=== PATIENT | male | born 1945 | race Caucasian/White ===

== ENCOUNTER 2017-02-10 18:08 | Emergency (ER) | payer OTHER, MEDICARE ==
[~2017-02-10 18:08] MED LIST: ARTIFICIAL TEAR15 ML OU; ASPIR 8181 MG JT; FLONASE 0.05% N16 GM; JEVITY 1 CAL1500 ML PO; LEVAQUIN750 MG PO; LIORESAL TAB 1010 MG JT; LIPITOR40 MG JT; LISINOPRIL40 MG JT; LORTAB 7.5-3251 EACH JT; MILK OF MAGNESI30 ML JT; MIRALAX17 GM JT; NEURONTIN 300300 MG JT; NORVASC 5 MG TAB5 MG JT; OMEPRAZOLE20 MG JT; REMERON30 MG JT; VENTOLIN/PROVE0.5 ML INH; VITAMIN D31000 UNI1 JT; ZYRTEC10 M2 JT
== END 2017-02-10 23:18 | disposition home or self-care (01) ==
LOC: ER1 18:08
DX: Z43.1 Encounter for attention to gastrostomy (principal); Z88.0 Allergy status to penicillin
CPT/HCPCS: 74000; 99282; Q9963

== ENCOUNTER 2017-02-14 10:32 | Inpatient (IN) | payer MEDICARE, OTHER ==
[~2017-02-14] VITALS: Ht 175.3 cm; Wt 64.0 kg
[2017-02-14 12:23] LABS: HEMOGLOBIN 11.9 gm/dl (14.0-17.5); RED BLOOD COUNT 3.92 M/UL (4.20-5.50); WHITE BLOOD COUNT 10.4 K/UL (4.5-11.0)
[2017-02-14 12:49] LABS: BUN/CREATININE RATIO 29 (0-10)
[2017-02-14] MEDS ORDERED: NITROGLYCERIN0.4 MG SL (21:55)
[2017-02-14] MEDS ORDERED: PREVACID 30 MG30 MG GT (21:55)
[2017-02-14] MEDS ORDERED: FEROSUL220 MG/51 PO (21:56)
[2017-02-14] MEDS ORDERED: BENZTROPINE MESY1 MG PO (21:56)
[2017-02-15 04:34] LABS: HEMOGLOBIN 10.4 gm/dl (14.0-17.5)
[2017-02-15 04:39] LABS: BUN/CREATININE RATIO 33 (0-10)
[2017-02-15 06:12] LABS: RED BLOOD COUNT 3.47 M/UL (4.20-5.50); WHITE BLOOD COUNT 5.9 K/UL (4.5-11.0)
[2017-02-16 04:44] LABS: HEMOGLOBIN 11.1 gm/dl (14.0-17.5); RED BLOOD COUNT 3.67 M/UL (4.20-5.50); WHITE BLOOD COUNT 6.8 K/UL (4.5-11.0)
[2017-02-16 05:06] LABS: BUN/CREATININE RATIO 23 (0-10)
[2017-02-17 05:13] LABS: HEMOGLOBIN 11.3 gm/dl (14.0-17.5); RED BLOOD COUNT 3.76 M/UL (4.20-5.50)
[2017-02-17 05:17] LABS: WHITE BLOOD COUNT 8.6 K/UL (4.5-11.0)
[2017-02-17 05:24] LABS: BUN/CREATININE RATIO 30 (0-10)
[2017-02-19 06:28] LABS: HEMOGLOBIN 12.7 gm/dl (14.0-17.5)
[2017-02-19 06:29] LABS: RED BLOOD COUNT 4.19 M/UL (4.20-5.50); WHITE BLOOD COUNT 10.9 K/UL (4.5-11.0)
[2017-02-19 06:51] LABS: BUN/CREATININE RATIO 18 (0-10)
[2017-02-19] MEDS ORDERED: CLEOCIN SU75 MG/5 ML GT (16:52)
== END 2017-02-19 12:26 | disposition home or self-care (01) | DRG 177 ==
LOC: ER1 10:32 → ZEROF 14:00 → CCU 20:08 → MED SURG 4 02-16 18:22 → M/S 02-18 10:48
PROVIDERS: Emergency Medicine; ADMIT Internal Medicine
DX: J69.0 Pneumonitis due to inhalation of food and vomit (principal); J96.01 Acute respiratory failure with hypoxia; G93.41 Metabolic encephalopathy; K94.13 Enterostomy malfunction; I69.952 Hemiplegia and hemiparesis following unspecified cerebrovascular disease affecting left dominant side; J01.90 Acute sinusitis, unspecified; I25.10 Atherosclerotic heart disease of native coronary artery without angina pectoris; Z95.1 Presence of aortocoronary bypass graft; E86.0 Dehydration; R13.10 Dysphagia, unspecified; Z93.4 Other artificial openings of gastrointestinal tract status; E78.5 Hyperlipidemia, unspecified; R41.82 Altered mental status, unspecified; Z88.0 Allergy status to penicillin; Z79.899 Other long term (current) drug therapy; Z79.82 Long term (current) use of aspirin; Z87.891 Personal history of nicotine dependence; F10.21 Alcohol dependence, in remission; G31.9 Degenerative disease of nervous system, unspecified; D69.6 Thrombocytopenia, unspecified; Z51.89 Encounter for other specified aftercare; M62.50 Muscle wasting and atrophy, not elsewhere classified, unspecified site
CPT/HCPCS: ECHO; 36415; 36600; 70450; 71010; 80048; 80053; 81001; 82803; 83605; 83735; 83880; 84132; 84484; 85025; 85027; 87040; 93005; 93306; 94640; 94664; 96361; 96365; 96375; 97110; 97112; 97530; 99285; J1956; J2550; J7030; J7070

== ENCOUNTER 2017-02-21 09:52 | Emergency (ER) | payer OTHER, MEDICARE ==
[~2017-02-21 09:52] MED LIST changes: +BENZTROPINE MESY1 MG PO; +CLEOCIN SU75 MG/5 ML GT; +FEROSUL220 MG/51 PO; +NITROGLYCERIN0.4 MG SL; +PREVACID 30 MG30 MG GT
[2017-02-21 11:42] LABS: HEMOGLOBIN 11.8 gm/dl (14.0-17.5); RED BLOOD COUNT 3.89 M/UL (4.20-5.50)
[2017-02-21 11:46] LABS: WHITE BLOOD COUNT 6.9 K/UL (4.5-11.0)
[2017-02-21 12:01] LABS: BUN/CREATININE RATIO 30 (0-10)
== END 2017-02-21 14:20 | disposition home or self-care (01) ==
LOC: ER1 09:52
PROVIDERS: Emergency Medicine
DX: R33.9 Retention of urine, unspecified (principal); D64.9 Anemia, unspecified; J69.0 Pneumonitis due to inhalation of food and vomit; I10 Essential (primary) hypertension; I69.354 Hemiplegia and hemiparesis following cerebral infarction affecting left non-dominant side; Z95.1 Presence of aortocoronary bypass graft; Z87.891 Personal history of nicotine dependence
CPT/HCPCS: 36415; 80053; 81001; 85025; 99284

== ENCOUNTER → 2017-03-16 | Outpatient (CLI) | payer MEDICARE, OTHER | LOC: CT 12:51 | DX: Z93.4 Other artificial openings of gastrointestinal tract status (principal); R91.8 Other nonspecific abnormal finding of lung field; Z43.4 Encounter for attention to other artificial openings of digestive tract; I63.9 Cerebral infarction, unspecified; K94.23 Gastrostomy malfunction | CPT/HCPCS: 74150; 76000; Q9963 ==

== ENCOUNTER → 2017-03-17 | Day surgery (SDC) | payer OTHER, MEDICARE ==
[2017-03-17 11:03] LABS: HEMOGLOBIN 13.2 gm/dl (14.0-17.5); RED BLOOD COUNT 4.34 M/UL (4.20-5.50); WHITE BLOOD COUNT 8.6 K/UL (4.5-11.0)
[2017-03-17 11:22] LABS: BUN/CREATININE RATIO 38 (0-10)
== END | disposition home or self-care (01) ==
LOC: OR 10:12
PROVIDERS: Surgery
PROC: 0D2DXUZ Change Feeding Device in Lower Intestinal Tract, External Approach (ICD-10-PCS; principal; 2017-03-17 11:00)
DX: K94.19 Other complications of enterostomy (principal); I10 Essential (primary) hypertension; J44.9 Chronic obstructive pulmonary disease, unspecified; I25.10 Atherosclerotic heart disease of native coronary artery without angina pectoris; K21.9 Gastro-esophageal reflux disease without esophagitis; J45.909 Unspecified asthma, uncomplicated; M19.90 Unspecified osteoarthritis, unspecified site; F41.9 Anxiety disorder, unspecified; F32.9 Major depressive disorder, single episode, unspecified; Z86.73 Personal history of transient ischemic attack (TIA), and cerebral infarction without residual deficits; Z87.891 Personal history of nicotine dependence; Z87.01 Personal history of pneumonia (recurrent); Z88.0 Allergy status to penicillin; Z79.82 Long term (current) use of aspirin; Z79.899 Other long term (current) drug therapy; Z90.89 Acquired absence of other organs; Z98.890 Other specified postprocedural states
CPT/HCPCS: 36415; 71010; 77001; 80053; 85025; 93005; J1956; J7030; J7120; Q9962

== ENCOUNTER 2017-03-18 20:57 | Emergency (ER) | payer MEDICARE, OTHER | END 2017-03-19 02:10 | disposition home or self-care (01) | LOC: ER1 20:57 | DX: N40.1 Benign prostatic hyperplasia with lower urinary tract symptoms (principal); R33.8 Other retention of urine; R39.11 Hesitancy of micturition; I10 Essential (primary) hypertension; I25.810 Atherosclerosis of coronary artery bypass graft(s) without angina pectoris; J45.909 Unspecified asthma, uncomplicated; E78.5 Hyperlipidemia, unspecified; Z88.0 Allergy status to penicillin; Z79.82 Long term (current) use of aspirin; Z79.899 Other long term (current) drug therapy | CPT/HCPCS: 36415; 51702; 74000; 81001; 87086; 96360; 99283; J7030; J7040; Q9963 ==

== ENCOUNTER 2017-03-19 16:22 | Emergency (ER) | payer MEDICARE, OTHER | END 2017-03-19 23:10 | disposition home or self-care (01) | LOC: ER1 16:22 | DX: K94.13 Enterostomy malfunction (principal); I63.9 Cerebral infarction, unspecified; I69.991 Dysphagia following unspecified cerebrovascular disease; R13.10 Dysphagia, unspecified; I10 Essential (primary) hypertension; Z88.0 Allergy status to penicillin; Z95.1 Presence of aortocoronary bypass graft | CPT/HCPCS: 74000; 96360; 99283; J7030; Q9963 ==